=== PATIENT | female | born 1990 | race African-American/Black ===

== ENCOUNTER 2016-08-19 16:31 | Emergency (ER) | payer SELFPAY ==
[2016-08-19 14:22] LABS: URINE SOURCE CLEAN CATCH
[2016-08-19 14:48] LABS: URINE APPEARANCE CLEAR; URINE BACTERIA AUWI NEG (NEGATIVE); URINE BILIRUBIN NEG (NEG); URINE BLOOD NEG (NEG); URINE COLOR YELLOW; URINE GLUCOSE NEG (NEG); URINE KETONE NEG (NEG); URINE LEUKOCYTE ESTERASE TRACE (NEG); URINE NITRATE NEG (NEG); URINE PH 5.5 (5-8); URINE PROTEIN NEG (NEG); URINE SPECIFIC GRAVITY 1.018 (1.003-1.035); URINE SQUAMOUS EPITHELIAL CELL OCC /[HPF]
[2016-08-19 14:49] LABS: CULTURE INDICATED? NO
== END 2016-08-19 17:13 | disposition left against medical advice (07) ==
LOC: CED 16:31
DX: R10.31 Right lower quadrant pain (principal); I10 Essential (primary) hypertension; F17.210 Nicotine dependence, cigarettes, uncomplicated
CPT/HCPCS: 81003; 84703; 99284

== ENCOUNTER 2016-10-11 14:34 | Emergency (ER) | payer SELFPAY | END 2016-10-11 15:45 | disposition home or self-care (01) | LOC: CED 14:34 → CFTX 14:34 | DX: R11.0 Nausea (principal); I10 Essential (primary) hypertension | CPT/HCPCS: 84703; 99282 ==